=== PATIENT | male | born 1985 | race Caucasian/White ===

== ENCOUNTER 2018-05-07 20:24 | Emergency (ER) | payer OTHER ==
[2018-05-07 20:46] VITALS: BP 141/82
[2018-05-07] MEDS ORDERED: Ibuprofen TAB* 600 MG PO ONE (21:17)
--- NOTE | 2018-05-07 21:17 | UC ---
Upper Extremity HPI - HPI Summary HPI Summary: This patient is a 32 year old M presenting to [facility] [place] with a chief complaint of right hand pain that began tonight. The patient put his hand up to stop a large beach ball and it bent his fingers back. The patient rates the pain 8/10 in severity. Symptoms aggravated by movement. Patient denies weakness and numbness. - History of Current Complaint Chief Complaint: UCUpperExtremity Stated Complaint: FINGER INJURY Hx Obtained From: Patient Onset/Duration: Lasting Hours, Still Present Severity Initially: Severe Severity Currently: Severe Pain Intensity: 8 Pain Scale Used: 0-10 Numeric Aggravating Factor(s): Movement Associated Signs And Symptoms: Positive: Negative - brusing, numbness, and weakness - Allergies/Home Medications Allergies/Adverse Reactions: Allergies Allergy/AdvReac Type Severity Reaction Status Date / Time cefaclor [facility] Allergy Hives Verified 05/07/18 20:46 Home Medications: Home Medications NK [No Home Medications Reported] 05/07/18 [History Confirmed 05/07/18] PMH/Surg Hx/FS Hx/Imm Hx Previously Healthy: Yes Other History Of: Negative For: Hepatitis B, Hepatitis C, Anticoagulant Therapy - Surgical History Surgical History: Yes Surgery Procedure, Year, and Place: APPENDECTOMY - Family History Known Family History: Positive: Diabetes - Social History Alcohol Use: Occasionally Substance Use Type: None Smoking Status (MU): Never Smoked Tobacco Review of Systems Musculoskeletal: Other: - right hand injury and pain Neurological: Negative - weakness and numbness All Other Systems Reviewed And Are Negative: Yes Physical Exam - Summary Physical Exam Summary: General: well-appearing, no pain distress Skin: warm, color reflects adequate perfusion, dry Head: normal Eyes: EOMI, SHAILA ENT: normal Neck: supple, nontender Respiratory: CTA, breath sounds present Cardiovascular: RRR Abdomen: soft, nontender Bowel: present Musculoskeletal: strength/ROM intact, right fourth finger dip is flexed and his PIP is in hyperextension, erythema swelling and tenderness over the DIP no laceration. Neurological: sensory/motor intact, A&O x3 Psychological: affect/mood appropriate Triage Information Reviewed: Yes Vital Signs: Initial Vital Signs Temp 97.9 F 05/07/18 20:43 Pulse 82 05/07/18 20:43 Resp 16 05/07/18 20:43 BP 141/82 05/07/18 20:43 Pulse Ox 99 05/07/18 20:43 Vital Signs Reviewed: Yes Diagnostics - Radiology right hand xray Radiology Interpretation Completed By: ED Physician - Fracture distal phalanx in the DIP right fourth finger. Hyperextension of PIP no dislocation. Pending official report Upper Extremity Course/Dx - Course Course Of Treatment: INJURY CONSISTENT WITH MALLET FINGER. X-RAY RESULTS DISCUSSED WITH THE PATIENT. RADIOLOGIST READING PENDING. DIP SPLINTED IN EXTENSION BY MYSELF. NEUROVASCULAR INTACT AFTER SPLINT. F/U WITH ORTHO/HANDS. - Differential Dx/Diagnosis Provider Diagnoses: RIGHT 4TH FINGER FXR Discharge - Sign-Out/Discharge Documenting (check all that apply): Patient Departure All imaging exams completed and their final reports reviewed: No - Discharge Plan Condition: Stable Disposition: HOME Patient Education Materials: Finger Fracture (ED) Referrals: [facility] [Provider Group] Mali Mayberry MD [Medical Doctor] - Additional Instructions: FOLLOW UP WITH DR MAYBERRY, ORTHOPEDICS. KEEP YOUR FINGER SPLINTED IN EXTENSION. GET RECHECKED FOR ANY WORSENING OF YOUR CONDITION OR QUESTIONS OR CONCERNS. - Billing Disposition and Condition Condition: STABLE Disposition: Home - Attestation Statements Document Initiated by Scribe: Yes Documenting Scribe: Quinton Thomas Provider For Whom Scribe is Documenting (Include Credential): Paul Davis MD Scribe Attestation: Quinton Rodríguez scribed for Paul Davis MD on 05/07/18 at 2202. Scribe Documentation Reviewed: Yes Provider Attestation: The documentation as recorded by the Quinton yanes accurately reflects the service I personally performed and the decisions made by me, Paul Davis MD
--- NOTE | 2018-05-08 08:55 | RAD ---
EDITED FOR CHARGES INDICATION: "Jammed" left ring finger COMPARISON: None. TECHNIQUE: 3 views of the left ring finger were obtained. FINDINGS: Depicted best on the lateral view there is a minimally displaced fracture at the proximal dorsal corner of the left ring finger distal phalanx. The remaining visualized bones are intact and appropriately aligned. IMPRESSION: MINIMALLY DISPLACED AVULSION FRACTURE AT THE DORSAL PROXIMAL CORNER OF THE LEFT RING FINGER DISTAL PHALANX. R0 MTDD
--- NOTE | 2018-05-08 15:25 | UC ---
- Progress Note Progress Note: OFFICIAL RADIOLOGY REPORT CONFIRMS MINIMALLY DISPLACED AVULSION FRACTURE AT THE DORSAL PROXIMAL CORNER OF THE LEFT RING FINGER DISTAL PHALANX. NO CHANGE IN MGMT - DANIEL CELAYA MD Discharge - Sign-Out/Discharge Documenting (check all that apply): Post-Discharge Follow Up All imaging exams completed and their final reports reviewed: Yes - Discharge Plan Condition: Stable Disposition: HOME Patient Education Materials: Finger Fracture (ED) Referrals: [facility] [Provider Group] Mail Quintero MD [Medical Doctor] - Additional Instructions: FOLLOW UP WITH DR QUINTERO, ORTHOPEDICS. KEEP YOUR FINGER SPLINTED IN EXTENSION. GET RECHECKED FOR ANY WORSENING OF YOUR CONDITION OR QUESTIONS OR CONCERNS. - Billing Disposition and Condition Condition: STABLE Disposition: Home
== END 2018-05-07 21:25 | disposition home or self-care (01) ==
LOC: UCEAST 20:24
DX: S62.635A Displaced fracture of distal phalanx of left ring finger, initial encounter for closed fracture (principal); W21.09XA Struck by other hit or thrown ball, initial encounter; Y93.9 Activity, unspecified; Y92.9 Unspecified place or not applicable; Z88.1 Allergy status to other antibiotic agents
CPT/HCPCS: 73140; 99203; A9270-GY; G0463